=== PATIENT | female | born 1960 | race Caucasian/White ===

== ENCOUNTER 2021-10-10 10:04 | Emergency (ER) | payer BC ==
[2021-10-10] MEDS ORDERED: Sodium Chloride 0.9% 10 ML Syringe FLUSH PRN (11:22)
[2021-10-10] MEDS ORDERED: Sodium Chloride 0.9% 1,000 ML IV SCH ×2 (11:30→16:15)
--- NOTE | 2021-10-10 12:29 | CT ---
Head CT Technique: Multiple axial sections through the brain were obtained. Intravenous contrast was not utilized. Reconstructed coronal and sagittal images were obtained. Comparison: No prior intracranial imaging is available. Findings: Ventricles along the basal cisterns and sulci over the convexities are within normal limits for the patient's age. No abnormal parenchymal densities are seen. No evidence of intracranial hemorrhage is seen. No midline shift or mass-effect is seen. Bone window settings were reviewed. Atherosclerotic calcification is seen within portions of the vertebral vessels and within the carotid siphon. Visualized mastoid sinuses and paranasal sinuses show nothing acute. No acute calvarial abnormality is appreciated. Impression: 1. Minimal senescent change as described above. 2. Nothing acute is otherwise seen on noncontrast head CT study. Diagnostic code #2
[2021-10-10] MEDS ORDERED: cefTRIAXone 1 GM in Sodium Chloride 0.9% 100 ML IV ONE (13:25)
--- NOTE | 2021-10-10 13:32 | EDM.PDOC ---
ED HPI GENERAL MEDICAL PROBLEM - General Chief Complaint: General Stated Complaint: INFUSION Time Seen by Provider: 10/10/21 10:58 Source of Information: Reports: Patient, Old Records History Limitations: Reports: No Limitations - History of Present Illness INITIAL COMMENTS - FREE TEXT/NARRATIVE: The patient presents with hyponatremia. The patient was put on Acarbose for her type II diabetes towards the end of September. She had bad side effects like diarrhea, body aches, and exhaustion. She quit taking it over a week ago. The diarrhea stopped 3 days ago. She felt like she may have a UTI so she went to the walk in clinic at [place] yesterday. Her UA did confirm a UTI and she was put on cefdinir. They did a CBC and BMP. She went home waiting for results. Her Na was low at 116. She was told to go to the ER last night. She did not come until this morning. She still has no diarrhea. She has generalized weakness. She has nausea but no vomiting. She also had elevated creatinine at 4.2. She has no fever, chills, cough, chest pain, shortness of breath, abdominal pain, or vomiting. She has a history of hypertension and diabetes type II. She has never had trouble with her kidneys before. She has a little bit of confusion. She said she could not find the ER this morning. Onset: Gradual Duration: Week(s): Severity: Moderate Improves with: Reports: None Worsens with: Reports: None Associated Symptoms: Reports: Nausea/Vomiting, Weakness. Denies: Chest Pain, Cough, Headaches, Loss of Appetite, Shortness of Breath Legs Pain Score (Numeric/FACES): 2 - Related Data Allergies Allergy/AdvReac Type Severity Reaction Status Date / Time acetaminophen [From Vicodin] Allergy Disorientat Verified 10/10/21 11:19 ion adhesive tape Allergy Itching Verified 10/10/21 11:18 amlodipine Allergy Pain Verified 10/10/21 11:05 hydrocodone [From Vicodin] Allergy Disorientat Verified 10/10/21 11:19 ion tetanus and diphtheria Allergy Swelling Verified 10/10/21 11:05 toxoids Home Meds: Home Meds Furosemide 40 mg PO DAILY 10/10/21 [History] Lisinopril/Hydrochlorothiazide [Lisinopril-Hctz 20-25 mg Tab] 1 tab PO DAILY 10/10/21 [History] Multivitamin [Multi-Vitamin Daily] 1 tab PO DAILY 10/10/21 [History] Oxybutynin 5 mg PO DAILY 10/10/21 [History] Triamcinolone Acetonide [Triamcinolone Acetonide 0.1% Crm] 1 applic TOP DAILY PRN 10/10/21 [History] allopurinoL [Zyloprim] 100 mg PO DAILY 10/10/21 [History] lisinopriL [Lisinopril] 20 mg PO DAILY 10/10/21 [History] Past Medical History HEENT History: Reports: Impaired Vision Cardiovascular History: Reports: Hypertension Genitourinary History: Reports: Other (See Below) Other Genitourinary History: Current UTI [employer]ER History: Reports: Musculoskeletal History: Reports: Arthritis, Other (See Below) Other Musculoskeletal History: Ankylosing spondylitits Endocrine/Metabolic History: Reports: Obesity/BMI 30+ Hematologic History: Reports: Other (See Below) Other Hematologic History: Blood thinners create platelet and coagulation problems; Takes longer than normal to clot Dermatologic History: Reports: Eczema - Infectious Disease History Infectious Disease History: Reports: Chicken Pox, Influenza, Measles, Mumps - Past Surgical History GI Surgical History: Reports: Appendectomy Musculoskeletal Surgical History: Reports: Hip Replacement Social & Family History - Family History Family Medical History: No Pertinent Family History - Tobacco Use Tobacco Use Status *Q: Never Tobacco User - Caffeine Use Caffeine Use: Reports: None - Recreational Drug Use Recreational Drug Use: No ED ROS GENERAL - Review of Systems Review Of Systems: See Below Constitutional: Reports: Malaise, Weakness, Fatigue. Denies: Fever, Chills HEENT: Reports: No Symptoms Respiratory: Reports: No Symptoms Cardiovascular: Reports: No Symptoms Endocrine: Reports: No Symptoms GI/Abdominal: Reports: Nausea. Denies: Abdominal Pain, Vomiting : Reports: No Symptoms Musculoskeletal: Reports: No Symptoms Skin: Reports: No Symptoms ED EXAM, GENERAL - Physical Exam Exam: See Below Exam Limited By: No Limitations General Appearance: Alert, No Apparent Distress Ears: Normal External Exam Nose: Normal Inspection Head: Atraumatic, Normocephalic Neck: Normal Inspection Respiratory/Chest: No Respiratory Distress, Lungs Clear, Normal Breath Sounds Cardiovascular: Regular Rate, Rhythm, No Edema, No Murmur GI/Abdominal: Soft, Non-Tender, No Organomegaly Back Exam: Normal Inspection Extremities: Normal Inspection Course - Vital Signs Last Recorded V/S: Last Vital Signs Temp 97.2 F 10/10/21 11:02 Pulse 71 10/10/21 11:02 Resp 18 10/10/21 11:02 BP 127/84 10/10/21 11:02 Pulse Ox 100 10/10/21 11:02 - Orders/Labs/Meds Orders: Active Orders 24 hr Category Date Time Status Cardiac Monitoring [RC] . DIRECTED Care 10/10/21 11:22 Active Peripheral IV Care [RC] . DIRECTED Care 10/10/21 11:23 Active CULTURE URINE [MREF] Stat Lab 10/10/21 12:10 Received Sodium Chloride 0.9% [Normal Saline] 1,000 ml Med 10/10/21 11:30 Active IV ASDIRECTED Sodium Chloride 0.9% [Normal Saline] 2,000 ml Med 10/10/21 13:52 Active IV ONETIME Sodium Chloride 0.9% [Saline Flush] Med 10/10/21 11:22 Active 10 ml FLUSH ASDIRECTED PRN Peripheral IV Insertion Adult [OM.PC] Stat Oth 10/10/21 11:22 Ordered Medication Orders Sodium Chloride (Normal Saline) 1,000 mls @ 125 mls/hr IV ASDIRECTED SAÚL Last Admin: 10/10/21 11:44 Dose: 125 mls/hr Documented by: LILIANA Sodium Chloride (Normal Saline) 2,000 mls @ 1,000 mls/hr IV ONETIME ONE Stop: 10/10/21 15:51 Last Admin: 10/10/21 14:10 Dose: 1,000 mls/hr Documented by: LILIANA Sodium Chloride (Sodium Chloride 0.9% 10 Ml Syringe) 10 ml FLUSH ASDIRECTED PRN PRN Reason: Keep Vein Open Last Admin: 10/10/21 11:50 Dose: 10 ml Documented by: LILIANA Labs: Laboratory Tests 10/10/21 10/10/21 10/10/21 Range/Units 11:00 11:00 11:16 WBC 6.83 (3.98-10.04) K/mm3 RBC 3.33 L (3.98-5.22) M/mm3 Hgb 10.2 L (11.2-15.7) gm/dl Hct 28.8 L (34.1-44.9) % MCV 86.5 (79.4-94.8) fl MCH 30.6 (25.6-32.2) pg MCHC 35.4 (32.2-35.5) g/dl RDW Std Deviation 42.4 (36.4-46.3) fL Plt Count 305 (182-369) K/mm3 MPV 11.2 (9.4-12.3) fl Neut % (Auto) 77.7 H (34.0-71.1) % Lymph % (Auto) 8.2 L (19.3-51.7) % [place] % (Auto) 11.6 (4.7-12.5) % Eos % (Auto) 0.6 L (0.7-5.8) Baso % (Auto) 0.0 L (0.1-1.2) % Neut # (Auto) 5.31 (1.56-6.13) K/mm3 Lymph # (Auto) 0.56 L (1.18-3.74) K/mm3 [place] # (Auto) 0.79 H (0.24-0.36) K/mm3 Eos # (Auto) 0.04 (0.04-0.36) K/mm3 Baso # (Auto) 0.00 L (0.01-0.08) K/mm3 Manual Slide Review Normal smear Sodium 115 L* (136-145) mEq/L Potassium 4.9 (3.5-5.1) mEq/L Chloride 81 L (98-107) mEq/L Carbon Dioxide 14 L (21-32) mEq/L Anion Gap 24.9 H (5-15) BUN 142 H (7-18) mg/dL Creatinine 3.7 H (0.55-1.02) mg/dL Est Cr Clr Drug Dosing 17.27 mL/min Estimated GFR (MDRD) 12 (>60) mL/min BUN/Creatinine Ratio 38.4 H (14-18) Glucose 89 (70-99) mg/dL POC Glucose 90 (70-99) mg/dL Calcium 8.9 (8.5-10.1) mg/dL Magnesium 2.7 H (1.8-2.4) mg/dL Total Bilirubin 0.4 (0.2-1.0) mg/dL AST 157 H (15-37) U/L ALT 94 H (14-59) U/L Alkaline Phosphatase 67 (46-116) U/L Total Protein 6.5 (6.4-8.2) g/dl Albumin 3.5 (3.4-5.0) g/dl Globulin 3.0 gm/dL Albumin/Globulin Ratio 1.2 (1-2) Urine Color (Yellow) Urine Appearance (Clear) Urine pH (5.0-8.0) Ur Specific [place] (1.005-1.030) Urine Protein (Negative) Urine Glucose (UA) (Negative) Urine Ketones (Negative) Urine Occult Blood (Negative) Urine Nitrite (Negative) Urine Bilirubin (Negative) Urine Urobilinogen (0.2-1.0) Ur Leukocyte Esterase (Negative) Urine RBC (0-5) /hpf Urine WBC (0-5) /hpf Ur Squamous Epith Cells (0-5) /hpf Amorphous Sediment (NOT SEEN) /hpf Urine Bacteria (FEW) /hpf Urine Mucus (FEW) /hpf Ur Random Sodium (40-220) mEq/L SARS-CoV-2 RNA (SMITH) (NEGATIVE) 10/10/21 10/10/21 10/10/21 Range/Units 11:55 12:10 12:10 WBC (3.98-10.04) K/mm3 RBC (3.98-5.22) M/mm3 Hgb (11.2-15.7) gm/dl Hct (34.1-44.9) % MCV (79.4-94.8) fl MCH (25.6-32.2) pg MCHC (32.2-35.5) g/dl RDW Std Deviation (36.4-46.3) fL Plt Count (182-369) K/mm3 MPV (9.4-12.3) fl Neut % (Auto) (34.0-71.1) % Lymph % (Auto) (19.3-51.7) % [place] % (Auto) (4.7-12.5) % Eos % (Auto) (0.7-5.8) Baso % (Auto) (0.1-1.2) % Neut # (Auto) (1.56-6.13) K/mm3 Lymph # (Auto) (1.18-3.74) K/mm3 [place] # (Auto) (0.24-0.36) K/mm3 Eos # (Auto) (0.04-0.36) K/mm3 Baso # (Auto) (0.01-0.08) K/mm3 Manual Slide Review Sodium (136-145) mEq/L Potassium (3.5-5.1) mEq/L Chloride (98-107) mEq/L Carbon Dioxide (21-32) mEq/L Anion Gap (5-15) BUN (7-18) mg/dL Creatinine (0.55-1.02) mg/dL Est Cr Clr Drug Dosing mL/min Estimated GFR (MDRD) (>60) mL/min BUN/Creatinine Ratio (14-18) Glucose (70-99) mg/dL POC Glucose (70-99) mg/dL Calcium (8.5-10.1) mg/dL Magnesium (1.8-2.4) mg/dL Total Bilirubin (0.2-1.0) mg/dL AST (15-37) U/L ALT (14-59) U/L Alkaline Phosphatase (46-116) U/L Total Protein (6.4-8.2) g/dl Albumin (3.4-5.0) g/dl Globulin gm/dL Albumin/Globulin Ratio (1-2) Urine Color Yellow (Yellow) Urine Appearance Clear (Clear) Urine pH 5.5 (5.0-8.0) Ur Specific [place] 1.010 (1.005-1.030) Urine Protein 2+ H (Negative) Urine Glucose (UA) Negative (Negative) Urine Ketones Negative (Negative) Urine Occult Blood 3+ H (Negative) Urine Nitrite Negative (Negative) Urine Bilirubin Negative (Negative) Urine Urobilinogen 0.2 (0.2-1.0) Ur Leukocyte Esterase 3+ H (Negative) Urine RBC 10-20 H (0-5) /hpf Urine WBC 30-40 H (0-5) /hpf Ur Squamous Epith Cells 0-5 (0-5) /hpf Amorphous Sediment Few H (NOT SEEN) /hpf Urine Bacteria Many H (FEW) /hpf Urine Mucus Few (FEW) /hpf Ur Random Sodium 27 L (40-220) mEq/L SARS-CoV-2 RNA (SMITH) Negative (NEGATIVE) Meds: Medications Generic Name Dose Route Start Last Admin Trade Name Frehelena PRN Reason Stop Dose Admin Sodium Chloride 1,000 mls @ 125 mls/hr 10/10/21 11:30 10/10/21 11:44 Normal Saline IV 125 mls/hr ASDIRECTED SAÚL Administration Sodium Chloride 2,000 mls @ 1,000 mls/hr 10/10/21 13:52 10/10/21 14:10 Normal Saline IV 10/10/21 15:51 1,000 mls/hr ONETIME ONE Administration Sodium Chloride 10 ml 10/10/21 11:22 10/10/21 11:50 Sodium Chloride 0.9% 10 Ml Syringe FLUSH 10 ml ASDIRECTED PRN Administration Keep Vein Open Discontinued Medications Generic Name Dose Route Start Last Admin Trade Name Freq PRN Reason Stop Dose Admin Ceftriaxone Sodium 1 gm/ 100 mls @ 200 mls/hr 10/10/21 13:25 10/10/21 13:36 Sodium Chloride IV 10/10/21 13:54 200 mls/hr ONETIME ONE Administration - Re-Assessments/Exams Free Text/Narrative Re-Assessment/Exam: 10/10/21 14:56 I ordered an IV NS 1L bolus, CT of her head, labs and UA. The CT of her head shows minimal senescent change. Nothing acute is otherwise seen on noncontrast head CT study. Her Hgb was low at 10.2. Her Na is still low at 115. Her K was normal at 4.9. Her CO2 is low at 14. Her anion gap is elevated at 24.9. Her creatinine is elevated at 3.7. Her GFR is low at 12. Her calcium is normal at 8.9. Her magnesium is elevated at 2.7. Her AST is elevated at 157. Her ALT is elevated at 94. Her UA shows a UTI. She is COVID negative. She is in renal failure and has hyponatremia. She needs more fluids and admission. I talked with our hospitalist Dr Stone and he felt the patient should to to [place] where the have nephrology if needed. I called [facility] in [place] and talked with the hospitalist Dr Orr and he agreed to the admission. He wanted me to give her a 2L bolus and then 100ml/hr. 10/10/21 15:02 Departure - Departure Time of Disposition: 15:15 Disposition: DC/Tfer to Acute Hospital 02 Condition: Serious Clinical Impression: Hyponatremia Renal failure Qualifiers: Renal failure chronicity: acute Acute renal failure type: unspecified Qualified Code(s): N17.9 - Acute kidney failure, unspecified - Discharge Information Referrals: PCP,None [Primary Care Provider] - Forms: ED Department Discharge Sepsis Event Note (ED) - Evaluation Sepsis Screening Result: No Definite Risk - Focused Exam Vital Signs: Vital Signs Temp Pulse Resp BP Pulse Ox 10/10/21 11:02 97.2 F 71 18 127/84 100 - My Orders Last 24 Hours: My Active Orders 10/10/21 11:22 Cardiac Monitoring [RC] . DIRECTED Sodium Chloride 0.9% [Saline Flush] 10 ml FLUSH ASDIRECTED PRN Peripheral IV Insertion Adult [OM.PC] Stat 10/10/21 11:23 Peripheral IV Care [RC] . DIRECTED 10/10/21 11:30 Sodium Chloride 0.9% [Normal Saline] 1,000 ml IV ASDIRECTED 10/10/21 12:10 CULTURE URINE [MREF] Stat 10/10/21 13:52 Sodium Chloride 0.9% [Normal Saline] 2,000 ml IV ONETIME - Assessment/Plan Last 24 Hours: My Active Orders 10/10/21 11:22 Cardiac Monitoring [RC] . DIRECTED Sodium Chloride 0.9% [Saline Flush] 10 ml FLUSH ASDIRECTED PRN Peripheral IV Insertion Adult [OM.PC] Stat 10/10/21 11:23 Peripheral IV Care [RC] . DIRECTED 10/10/21 11:30 Sodium Chloride 0.9% [Normal Saline] 1,000 ml IV ASDIRECTED 10/10/21 12:10 CULTURE URINE [MREF] Stat 10/10/21 13:52 Sodium Chloride 0.9% [Normal Saline] 2,000 ml IV ONETIME
[2021-10-10] MEDS ORDERED: Sodium Chloride 0.9% 2,000 ML IV ONE (13:52)
[2021-10-10] MEDS ORDERED: Ondansetron 4 MG/2 ML SDV IVPUSH ONE (16:14)
== END 2021-10-10 17:43 ==
LOC: JD.ED 10:04
DX: N17.9 Acute kidney failure, unspecified (principal); E87.1 Hypo-osmolality and hyponatremia; I10 Essential (primary) hypertension; E66.9 Obesity, unspecified; Z68.35 Body mass index [BMI] 35.0-35.9, adult; Z88.6 Allergy status to analgesic agent; Z91.048 Other nonmedicinal substance allergy status; Z88.8 Allergy status to other drugs, medicaments and biological substances; Z88.7 Allergy status to serum and vaccine; Z79.899 Other long term (current) drug therapy; Z20.822 Contact with and (suspected) exposure to COVID-19
CPT/HCPCS: 36415; 70450; 80053; 81001; 82947; 83735; 84300; 85025; 87086; 87088; 87186; 87635; 96374; 96375; 99285; J0696; J2405; J7030; U0002